=== PATIENT | female | born 1940 | race Caucasian/White ===

== ENCOUNTER 2016-09-17 07:02 | Emergency (ER) | payer MEDICARE, BC ==
[~2016-09-17 07:02] MED LIST: ALBUTEROL SULF8.5 GM IH; ALBUTEROL17 GM; ALBUTEROL17 GM INH; ASPIRIN EC81 MG PO; ASPIRIN81 MG; ATENOLOL50 MG; ATIVAN0.5 M1 PO; ATIVAN0.5 MG; ATIVAN0.5 MG PO; BYSTOLIC10 M1 PO; BYSTOLIC5 MG PO; CALCIUM CITRAT1 EAC7 PO; CENTRUM SILVER1 EAC3 PO; CENTRUM SILVER1 TA; CENTRUM SILVER1 TAB PO; COMBIVENT INH14.7 GM; COMBIVENT RESPIM4 G1 INH; CRESTOR10 MG; CRESTOR10 MG PO; DELTASONE10 MG PO; FISH OIL 1,0001 CA1; FISH OIL 1,0001 CA1 PO; FISH OIL 11000 MG/CA PO; GARLIC400 MG PO; GARLIQUE400 MG; LISINOPRIL10 MG; LISINOPRIL5 MG; LISINOPRIL5 MG PO; METOPROLOL TART25 MG; PREDNISONE10 MG PO; PROAIR HFA8.5 GM IH; PROAIR HFA8.5 GM INH; RANITIDINE HCL150 M2 PO; VIBRAMYCIN100 M1 PO; VITAMIN D31000 UNI3 PO; WELCHOL625 MG; WELCHOL625 MG PO; ZANTAC150 M1 PO; ZOCOR80 M1 PO; ZPAK PO
[2016-09-17] MEDS ORDERED: FISH OIL 1,2001 EAC5 PO (07:20)
[2016-09-17] MEDS ORDERED: CALCIUM CITRAT1 EAC5 PO (07:21)
[2016-09-17] MEDS ORDERED: VITAMIN C1000 M1 PO (07:21)
[2016-09-17] MEDS ORDERED: FOSAMAX70 M1 PO (07:22)
[2016-09-17] MEDS ORDERED: PRESERVISION A1 EAC5 PO (07:22)
[2016-09-17 08:31] LABS: BASO % 0.3 % (0-2); EOS % 1.5 % (0-7); EOSINOPHIL ABSOLUTE COUNT 0.1 tho/cmm (0.0-0.7); HCT-HEMATOCRIT 43.1 % (34.0-49.0); HGB-HEMOGLOBIN 14.1 gm/dl (12.0-15.5); IMMATURE GRANULOCYTES ABSOLUTE 0.01 tho/cmm (0-0.03); IMMATURE GRANULOCYTES PERCENT 0.1 % (0-0.3); LYMPH % 21.1 % (20-45); MCH (MEAN CORPUSCULAR HGB) 29.3 pg (28.0-32.0); MCHC MEAN CORPUSCULAR HGB CONC 32.7 % (32.0-36.0); MCV (MEAN CELL VOLUME) 89.4 fl (82.0-96.0); MEAN PLATELET VOLUME 9.7 cmc (9.4-12.4); MONO % 5.1 % (0-12); MONOCYTE ABSOLUTE COUNT 0.5 tho/cmm (0.0-1.2); NEUTROPHIL ABSOLUTE COUNT 6.8 tho/cmm (1.6-8.0); NEUTROPHIL-AUTOMATED 6.8 tho/cmm (1.6-8.0); NEUTROPHILS % 71.9 % (40-80); PLATELET COUNT 311 tho/cmm (150-450); RED BLOOD COUNT 4.82 mil/cmm (4.00-5.20); RED CELL DISTRIBUTION WIDTH 13.7 % (12.4-16.4); WHITE BLOOD COUNT 9.5 tho/cmm (4.0-10.0)
[2016-09-17 08:42] LABS: URINE APPEARANCE CLEAR; URINE BILIRUBIN NEGATIVE (NEG); URINE BLOOD NEGATIVE (NEG); URINE COLOR YELLOW; URINE GLUCOSE (UA) NEGATIVE (NEG); URINE KETONE NEGATIVE (NEG); URINE LEUKOCYTE ESTERASE POSITIVE (NEG); URINE NITRITE NEGATIVE (NEG); URINE PROTEIN SMALL (NEG)
[2016-09-17 08:49] LABS: URINE AMORPHOUS 1+; URINE MUCUS 1+; URINE RBC 0 /[HPF] (0-5)
[2016-09-17 08:50] LABS: URINE OTHER VOLUME 2 ML
[2016-09-17 08:54] LABS: ANION GAP 12 mmol/L (0-20); BLOOD UREA NITROGEN 18 mg/dl (6-24); CALCIUM 9.4 mg/dl (8.5-10.5); CARBON DIOXIDE-VENOUS 28 mmol/L (22-32); CHLORIDE 105 mmol/l (96-110); CREATININE 0.85 mg/dl (0.50-1.10); GLUCOSE 108 mg/dL (70-110); POTASSIUM 4.2 mmol/L (3.7-5.1); SODIUM 141 mmol/L (135-145); eGFR VALUE FOR BLACK 77 mL/Min
[2017-03-04] MEDS ORDERED: BYSTOLIC10 M1 PO (04:39)
[2017-03-05] MEDS ORDERED: MECLIZINE HCL25 M3 PO (12:39)
== END 2016-09-17 09:25 ==
LOC: EDMED 07:02
PROVIDERS: Emergency Medicine
DX: I10 Essential (primary) hypertension (principal); F41.9 Anxiety disorder, unspecified; K21.9 Gastro-esophageal reflux disease without esophagitis; Z95.0 Presence of cardiac pacemaker; Z88.2 Allergy status to sulfonamides; Z88.8 Allergy status to other drugs, medicaments and biological substances